=== PATIENT | male | born 1975 | race Caucasian/White ===

== ENCOUNTER 2023-02-01 12:15 | Emergency (ER) | payer OTHER ==
[2023-02-01] MEDS ORDERED: XYLOCAINE 1% HCL 20 ML MDV ONE (12:24)
--- NOTE | 2023-02-01 12:36 | ERPHSYRPT ---
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 Pt ambulates iwth an upright steady gait, able to speak in clear full sentences pt in no apparent respiratory distress. PT has small laceration noted to left cheek Physician History: 47-year-old presented with left cheek laceration while he was dealing with metal leti prior to arrival. There was bleeding initially but stopped with applying pressure. It is not communicating inside the buccal cavity. Up-to-date with tetanus. No injury anywhere else. Timing/Duration: today Quality: painful Severity: mild Location: face Possible Causes: other Associated Symptoms: denies symptoms Allergies/Adverse Reactions: No Known Drug Allergies Allergy (Verified 02/01/23 12:25) Hx Tetanus, Diphtheria Vaccination/Date Given: Yes Hx Influenza Vaccination/Date Given: No Hx Pneumococcal Vaccination/Date Given: No Immunizations Up to Date: Yes Travel Risk - International Travel Have you traveled outside of the country in past 3 weeks: No - Coronavirus Screening Are you exhibiting any of the following symptoms?: No Close contact with a COVID-19 positive Pt in past 14-21 Days: No - Vaccine Status Have you recieved a Covid-19 vaccination: No - Review of Systems Constitutional: No Symptoms Eyes: No Symptoms Ears, Nose, & Throat: Mouth Pain Respiratory: No Symptoms Cardiac: No Symptoms Abdominal/Gastrointestinal: No Symptoms Musculoskeletal: No Symptoms Skin: Skin Lesions Neurological: No Symptoms Psychological: No Symptoms - Past Medical History Pertinent Past Medical History: Yes Cardiac History: High Cholesterol - Past Surgical History Past Surgical History: No - Social History Smoking Status: Former smoker Exposure to second hand smoke: No Drug Use: none Patient Lives Alone: No - Nursing Vital Signs Nursing Vital Signs: Initial Vital Signs Temperature 98.2 F 02/01/23 12:20 Pulse Rate 106 H 02/01/23 12:20 Respiratory Rate 20 02/01/23 12:20 Blood Pressure 139/88 02/01/23 12:20 O2 Sat by Pulse Oximetry 97 02/01/23 12:20 Pain Scale Pain Intensity 2 - Physical Exam General Appearance: no apparent distress, alert Eye Exam: PERRL/EOMI Ears, Nose, Throat Exam: TMs normal, pharynx normal, moist mucous membranes (3 cm laceration linear along the left cheek. No active spurting or oozing. Not communicating to buccal cavity.), other Neck Exam: normal inspection, non-tender, supple, full range of motion Respiratory Exam: normal breath sounds, lungs clear Cardiovascular Exam: regular rate/rhythm, normal heart sounds Back Exam: normal inspection Extremity Exam: normal inspection, normal range of motion Neurologic Exam: alert, oriented x 3, cooperative Skin Exam: normal color SpO2 Interpretation: normal SpO2: 97 O2 Delivery: Room Air Procedures - Laceration/Wound Repair Left Face Time of Procedure: 12:34 Wound Location: Left Wound Length (cm): 3 Wound's Depth, Shape: into muscle Wound Explored: clean Irrigated: Yes Hibiclens Prep: Yes Anesthesia: 1% Lidocaine Volume Anesthetic (ccs): 5 Suture Size/Type: 5-0, ethilon Number of Sutures: 7 Layer Closure?: No Sterile Dressing Applied?: Yes Splint Applied?: No Ordered Tests: Medication Summary Discontinued Medications Generic Name Dose Route Start Last Admin Trade Name Joan PRN Reason Stop Dose Admin Lidocaine HCl Confirm 02/01/23 12:24 Lidocaine Hcl 1% 20 Ml Mdv 20 Ml Ml Administered 02/01/23 12:25 Dose 1 ml .ROUTE .[place] [employer] [facility] - Progress Progress: improved Progress Note: 02/01/23 12:35 47-year-old presented with left cheek laceration while he was dealing with metal leti prior to arrival. There was bleeding initially but stopped with applying pressure. It is not communicating inside the buccal cavity. Up-to-date with tetanus. No injury anywhere else. Laceration is repaired. Recommended Tylenol/ibuprofen and will give Keflex prophylactically. Counseled pt/family regarding: diagnosis, need for follow-up Medical Desision Making - Risk of complications Low Risk: Low risk of morbidity from additional dx testing or treatment - Departure Departure Disposition: Home Clinical Impression: Facial laceration Condition: Stable Critical Care Time: No Referrals: ANDRIA LANCASTER DO [ACTIVE STAFF] - Follow up with PCP 2 days Instructions: Laceration Repair With Stitches (DC) Additional Instructions: Follow-up with primary care for reevaluation. Intermittent ice application. Tylenol/ibuprofen as needed. Suture removal in 5 to 7 days. Return to ER for increasing pain swelling redness discharge etc. Prescriptions: Cephalexin Mh 500 mg [Keflex 500 mg] 500 mg PO TID #21 cap
[2023-02-01] MEDS ORDERED: BACIGUENT PACKET ONE (13:11)
[2023-02-01 13:12] VITALS: BP 128/82; PULSE 98; O2SAT 98
[2023-02-01] MEDS ORDERED: XYLOCAINE 1% HCL 20 ML MDV IJ ONE (13:19)
[2023-02-01] MEDS ORDERED: BACIGUENT PACKET TP ONE (13:21)
== END 2023-02-01 13:22 | disposition home or self-care (01) ==
LOC: ED 12:15
DX: S01.412A Laceration without foreign body of left cheek and temporomandibular area, initial encounter (principal); W20.8XXA Other cause of strike by thrown, projected or falling object, initial encounter; E78.5 Hyperlipidemia, unspecified; Z28.310 Unvaccinated for COVID-19
CPT/HCPCS: 12013; 96372; 99283; A9270-GY